=== PATIENT | female | born 1980 | race Caucasian/White ===

== ENCOUNTER → 2023-12-31 12:26 | Outpatient (REF) | payer OTHER, SELFPAY | LOC: WDC 12:26 | PROVIDERS: ATTENDING PHYSICIAN Nurse Practitioner | DX: Z12.31 Encounter for screening mammogram for malignant neoplasm of breast (principal) | CPT/HCPCS: 77063; 77067 ==

== ENCOUNTER → 2024-01-09 09:33 | Outpatient (REF) | payer OTHER, SELFPAY | LOC: WDC 09:33 | PROVIDERS: ATTENDING PHYSICIAN Nurse Practitioner | DX: R92.8 Other abnormal and inconclusive findings on diagnostic imaging of breast (principal) | CPT/HCPCS: 76642 ==

== ENCOUNTER → 2025-01-01 12:42 | Outpatient (REF) | payer OTHER, SELFPAY | LOC: WDC 12:42 | PROVIDERS: ATTENDING PHYSICIAN Nurse Practitioner | DX: Z12.31 Encounter for screening mammogram for malignant neoplasm of breast (principal) | CPT/HCPCS: 77063; 77067 ==